=== PATIENT | male | born 1970 | race Caucasian/White ===

== ENCOUNTER 2017-12-01 07:24 | Emergency (ER) | payer OTHER ==
[~2017-12-01] VITALS: Ht 172.7 cm; Wt 88.9 kg
[2017-12-01 07:59] LABS: BASOPHILS ABSOLUTE AUTO 0.05 K/mm3 (0.00-0.23); BASOPHILS PERCENT AUTO 0 % (0-2); EOSINOPHILS ABSOLUTE AUTO 0.52 K/mm3 (0.00-0.68); EOSINOPHILS PERCENT AUTO 4 % (0-6); Hematocrit 47.3 % (37.0-53.0); IMMATURE GRAN ABSOLUTE AUTO 0.04 K/mm3 (0.00-0.10); IMMATURE GRAN PERCENT AUTO 0 % (0-1); LYMPHOCYTES ABSOLUTE AUTO 2.57 K/mm3 (0.84-5.20); LYMPHOCYTES PERCENT AUTO 18 % (21-46); MONOCYTES PERCENT AUTO 10 % (4-13); Mean Corpuscular HGB 31.1 pg (26.0-34.0); Mean Corpuscular HGB Conc 33.8 g/dL (31.5-36.5); Mean Corpuscular Volume 92 fL (80-100); Mean Platelet Volume 9.6 fL (9.1-12.4); NEUTROPHILS ABSOLUTE AUTO 10.08 K/mm3 (1.96-9.15); NEUTROPHILS PERCENT AUTO 69 % (41-73); Platelet Count 372 K/mm3 (150-400); RDW Coefficient Variation 12.9 % (11.7-14.2); RDW Standard Deviation 43.8 fL (35.1-46.3); Red Blood Cell Count 5.14 M/mm3 (4.30-5.90); White Blood Cell Count 14.66 K/mm3 (4.00-11.30)
[2017-12-01 08:18] LABS: Alanine Aminotransfer (ALT/SGP 171 U/L (12-78); Albumin, Blood 4.2 g/dL (3.4-5.0); Alk Phos 73 U/L (50-136); Anion Gap 7 mmol/L (6-16); Aspartate Aminotrans (AST/SGOT 104 U/L (12-37); Bilirubin, Total 0.9 mg/dL (0.1-1.0); Blood Urea Nitrogen 20 mg/dL (8-24); Bun/Creatinine Ratio 21.6 (12.0-20.0); CO2, Blood 28 mmol/L (21-32); Calcium, Blood 9.1 mg/dL (8.5-10.1); Chloride, Blood 104 mmol/L (98-108); Creatinine, Blood 0.93 mg/dL (0.60-1.20); Globulin, Blood 4.3 g/dL (2.2-4.0); Glomerular Filtration Rate >60 (60-); Glucose, Blood 101 mg/dL (70-99); Potassium, Blood 4.1 mmol/L (3.5-5.5); Sodium, Blood 139 mmol/L (136-145); Total Protein, Blood 8.5 g/dL (6.4-8.2)
[2017-12-01] MEDS ORDERED: Percocet 5-3251 EACH PO (10:15)
[2017-12-01] MEDS ORDERED: MINO100 PO (10:15)
[2017-12-01] MEDS ORDERED: VANCO 1.751.75 GM/25 IV (16:47)
== END 2017-12-01 10:15 | disposition home or self-care (01) ==
LOC: ER 07:24
PROVIDERS: Emergency Medicine
DX: L08.9 Local infection of the skin and subcutaneous tissue, unspecified (principal); I89.1 Lymphangitis; D72.829 Elevated white blood cell count, unspecified; R00.0 Tachycardia, unspecified
CPT/HCPCS: 10060; 80053; 83605; 85025; 87040; 93005; 93010; 96361; 96374; 96375; 99283; J1170; J2405; J3370; J7030; J7050

== ENCOUNTER 2017-12-01 10:44 | Day surgery (SDC) | payer OTHER ==
[~2017-12-01 10:44] MED LIST: MINO100 PO; Percocet 5-3251 EACH PO
[2017-12-01] MEDS ORDERED: VANCO 1.751.75 GM/25 IV (16:47)
== END 2017-12-01 18:33 | disposition home or self-care (01) ==
LOC: ATC 10:44
DX: L03.021 Acute lymphangitis of right finger (principal)
CPT/HCPCS: 96365; 96366; J3370; J7050

== ENCOUNTER 2017-12-02 00:08 | Day surgery (SDC) | payer OTHER ==
[~2017-12-02 00:08] MED LIST changes: +VANCO 1.751.75 GM/25 IV
== END 2017-12-02 19:05 | disposition home or self-care (01) ==
LOC: ATC 00:08
DX: I89.1 Lymphangitis (principal)
CPT/HCPCS: 96365; 96366; J3370; J7050

== ENCOUNTER 2017-12-03 00:21 | Day surgery (SDC) | payer OTHER | END 2017-12-03 16:27 | disposition home or self-care (01) | LOC: ATC 00:21 | DX: I89.1 Lymphangitis (principal) | CPT/HCPCS: 96365; 96366; J3370; J7050 ==

== ENCOUNTER 2017-12-04 07:11 | Day surgery (SDC) | payer OTHER | END 2017-12-04 18:18 | disposition home or self-care (01) | LOC: ATC 07:11 | DX: L03.029 Acute lymphangitis of unspecified finger (principal) | CPT/HCPCS: 96365; 96366; J3370; J7050 ==

== ENCOUNTER 2017-12-14 13:17 | Emergency (ER) | payer OTHER ==
[~2017-12-14] VITALS: Ht 172.7 cm; Wt 86.2 kg
[2017-12-14 14:13] LABS: BASOPHILS ABSOLUTE AUTO 0.06 K/mm3 (0.00-0.23); BASOPHILS PERCENT AUTO 1 % (0-2); EOSINOPHILS ABSOLUTE AUTO 0.15 K/mm3 (0.00-0.68); EOSINOPHILS PERCENT AUTO 1 % (0-6); Hematocrit 47.6 % (37.0-53.0); Hemoglobin 15.9 g/dL (13.5-17.5); IMMATURE GRAN ABSOLUTE AUTO 0.04 K/mm3 (0.00-0.10); IMMATURE GRAN PERCENT AUTO 0 % (0-1); LYMPHOCYTES ABSOLUTE AUTO 3.18 K/mm3 (0.84-5.20); LYMPHOCYTES PERCENT AUTO 24 % (21-46); MONOCYTES ABSOLUTE AUTO 0.99 K/mm3 (0.16-1.47); MONOCYTES PERCENT AUTO 8 % (4-13); Mean Corpuscular HGB 30.6 pg (26.0-34.0); Mean Corpuscular HGB Conc 33.4 g/dL (31.5-36.5); Mean Corpuscular Volume 92 fL (80-100); Mean Platelet Volume 9.8 fL (9.1-12.4); NEUTROPHILS ABSOLUTE AUTO 8.77 K/mm3 (1.96-9.15); NEUTROPHILS PERCENT AUTO 67 % (41-73); Platelet Count 395 K/mm3 (150-400); RDW Standard Deviation 43.6 fL (35.1-46.3); White Blood Cell Count 13.19 K/mm3 (4.00-11.30)
[2017-12-14 14:30] LABS: Alanine Aminotransfer (ALT/SGP 116 U/L (12-78); Albumin, Blood 4.2 g/dL (3.4-5.0); Albumin/Globulin Ratio 0.9 (0.8-1.8); Alk Phos 72 U/L (50-136); Anion Gap 7 mmol/L (6-16); Aspartate Aminotrans (AST/SGOT 63 U/L (12-37); Bilirubin, Total 0.9 mg/dL (0.1-1.0); Blood Urea Nitrogen 18 mg/dL (8-24); Bun/Creatinine Ratio 19.6 (12.0-20.0); CO2, Blood 29 mmol/L (21-32); Calcium, Blood 9.4 mg/dL (8.5-10.1); Chloride, Blood 105 mmol/L (98-108); Creatinine, Blood 0.92 mg/dL (0.60-1.20); Globulin, Blood 4.7 g/dL (2.2-4.0); Glomerular Filtration Rate >60 (60-); Glucose, Blood 82 mg/dL (70-99); Potassium, Blood 4.2 mmol/L (3.5-5.5); Sodium, Blood 141 mmol/L (136-145); Total Protein, Blood 8.9 g/dL (6.4-8.2)
== END 2017-12-14 15:11 | disposition left against medical advice (07) ==
LOC: ER 13:17
PROVIDERS: Psychiatry & Neurology Psychiatry
DX: M79.644 Pain in right finger(s) (principal); F17.290 Nicotine dependence, other tobacco product, uncomplicated; Z88.5 Allergy status to narcotic agent; Z86.14 Personal history of Methicillin resistant Staphylococcus aureus infection
CPT/HCPCS: 36415; 73140; 80053; 85025; 99283

== ENCOUNTER 2017-12-14 16:28 | Emergency (ER) | payer OTHER ==
[~2017-12-14] VITALS: Ht 172.7 cm; Wt 86.2 kg
== END 2017-12-14 17:33 | disposition left against medical advice (07) ==
LOC: ER 16:28
DX: Z53.21 Procedure and treatment not carried out due to patient leaving prior to being seen by health care provider (principal)